=== PATIENT | male | born 1950 | race Caucasian/White ===

== ENCOUNTER 2016-06-23 16:41 | Emergency (ER) | payer OTHER ==
[~2016-06-23] VITALS: Ht 167.6 cm; Wt 95.0 kg
[2016-06-23 16:55] VITALS: Ht 167.6 cm; Wt 95.0 kg
[2016-06-23] MEDS ORDERED: SOD CHLORIDE 0.9% 1,000 ML IV STA (18:16)
[2016-06-23] MEDS ORDERED: HYDROCHLOROTHIAZIDE 50 MG TAB PO ONE (18:30)
[2016-06-23] MEDS ORDERED: HYDROCHLOROTHIAZIDE 25 MG TAB PO SCH (19:00)
[2016-06-23 19:10] LABS: BASOPHIL # 0.1 10^3/ul (0.0-0.1); BASOPHILS % 0.5 % (0.0-2.0); EOSINOPHILS # 0.2 10^3/ul (0.0-0.5); HEMATOCRIT 46.2 % (42.0-52.0); HEMOGLOBIN 15.8 g/dl (14.0-18.0); LYMPHOCYTES # 4.1 10^3/ul (0.8-2.9); LYMPHOCYTES % 39.4 % (15.0-51.0); MEAN CORPUSCULAR HEMOGLOBIN 32.3 pg (29.0-33.0); MEAN CORPUSCULAR HGB CONC 34.2 g/dl (32.0-37.0); MEAN CORPUSCULAR VOLUME 94.3 fl (82.0-101.0); MEAN PLATELET VOLUME 7.9 fl (7.4-10.4); MONOCYTES % 9.4 % (0.0-11.0); NEUTROPHIL # 5.1 10^3/ul (1.6-7.5); NEUTROPHILS % 48.7 % (39.0-77.0); PLATELET COUNT 204 10^3/UL (140-440); RED CELL DISTRIBUTION WIDTH 13.2 % (11.5-14.5); UNCORRECTED WBC 10.4 10^3/ul (4.8-10.8); WHITE BLOOD COUNT 10.4 10^3/ul (4.8-10.8)
[2016-06-23 19:14] LABS: CONDITION 1
--- NOTE | 2016-06-23 19:21 | RADRPT ---
PROCEDURE: XR Chest. CLINICAL INDICATION: Chest pain TECHNIQUE: Single frontal view of the chest. COMPARISON: No priorchest radiograph. FINDINGS: The lungs are clear. No pleural effusion or pneumothorax. The cardiomediastinal silhouette is unremarkable. No acute osseous abnormalities. Vascular calcifications of the aorta are present compatible with atherosclerosis. IMPRESSION: No acute air space infiltrates. RPTAT: AADD .Joce Klein MD, MD Date Time Electronically viewed and signed by .Joce Klein MD, MD on 06/23/2016 19:20 .B/
[2016-06-23 19:23] LABS: ALBUMIN 3.8 g/dl (3.3-4.9); CHLORIDE 105 mmol/L (97-110); POTASSIUM 4.2 mmol/L (3.5-5.1); SODIUM 141 mmol/L (135-144)
[2016-06-23 19:25] LABS: ANION GAP 15 (8-16); ASPARTATE AMINO TRANSFERASE 20 IU/L (15-46); BILIRUBIN,INDIRECT 0.5 mg/dl (0-1.1); BILIRUBIN,TOTAL 0.5 mg/dl (0.2-1.3); CARBON DIOXIDE 25 mmol/L (21-31); CREATININE 0.94 mg/dl (0.61-1.24)
[2016-06-23 19:26] LABS: ALANINE AMINOTRANSFERASE 26 IU/L (13-69); ALBUMIN/GLOBULIN RATIO 1.22; ALKALINE PHOSPHATASE 87 IU/L (42-121); BLOOD UREA NITROGEN 20 mg/dl (7-20); CALCIUM 9.1 mg/dl (8.4-10.2); GLUCOSE 106 mg/dl (70-220); TOTAL PROTEIN 6.9 g/dl (6.1-8.1)
[2016-06-23 19:39] LABS: TROPONIN-I < 0.012 ng/ml (0.00-0.12)
[2016-06-23 19:45] VITALS: BP 142/85; PULSE 76; RESP 18
[2016-06-23] MEDS ORDERED: TADA5TAB5 PO (19:55)
[2016-06-23] MEDS ORDERED: HYDR50TA3 PO (19:55)
--- NOTE | 2016-06-23 19:58 | ERD ---
ER Documentation Chief Complaint Date/Time DATE: 06/23/16 TIME: 19:58 Chief Complaint HTN WITH ADVERSE SIFE EFFECTS FROM CURRENT RX MEDICATION HPI 66-year-old man presents with discomfort to his head and neck and increased palpitations and generally feeling uneasy after beginning antihypertensive therapy with benazepril. His main purpose for his PMD visit recently was for a prescription of tadalafil, although his PMT did not want to prescribe it until his blood pressure was better controlled. Patient denies chest pain or pressure , no shortness of breath, no calf or leg swelling, no blurry vision, no vomiting or diarrhea. ROS All systems reviewed and are negative except as per history of present illness. Medications Home Meds Active Scripts Hydrochlorothiazide* (Hydrochlorothiazide*) 50 Mg Tab, 50 MG PO DAILY, #60 TAB Prov:JERAMY HENDERSON MD 06/23/16 Tadalafil (Cialis) 5 Mg Tablet, 5 MG PO DAILY, #14 TAB Prov:JERAMY HENDERSON MD 06/23/16 Allergies Allergies: Coded Allergies: No Known Allergy (Unverified , 06/23/16) PMhx/Soc Hypertension, obesity, tobacco smoke History of Surgery: No Anesthesia Reaction: No Hx Neurological Disorder: No Hx Respiratory Disorders: No Hx Cardiac Disorders: No Hx Psychiatric Problems: No Hx Miscellaneous Medical Probl: Yes (HTN) Hx Alcohol Use: No Hx Substance Use: No Smoking Status: Current every day smoker FmHx Family History: No diabetes Physical Exam Vitals Vital Signs Date Time Temp Pulse Resp B/P Pulse Ox O2 Delivery O2 Flow Rate FiO2 06/23/16 19:45 76 18 142/85 99 Room Air 06/23/16 16:55 96.3 101 20 141/90 97 Physical Exam GENERAL: Well-developed, well-nourished, well-hydrated, in no apparent distress , looks nontoxic in appearance HEENT: Moist mucous membranes, pink conjunctiva, no cervical spine tenderness or step-off deformities, no goiter, no jaundice or icterus, extraocular movements intact without pain. No submandibular induration, and no pharyngeal erythema NEURO: Alert and oriented 3, cranial nerves II through XII intact bilaterally, pupils equal round reactive to light, no focal deficits or facial asymmetry, sensation intact distally Strength 5/5 in upper and lower extremities bilaterally CARDIAC: Regular rate and rhythm, no murmurs rubs or gallops LUNGS: Clear bilaterally no wheezing crackles or stridor ABDOMEN: Soft nontender, no guarding, no rigidity, no rebound, no psoas sign no obturator sign. Normoactive bowel sounds SKIN: Warm and dry to touch, no abrasions, contusions, or hematomas, no lacerations, no ecchymosis, no target lesions, and without ulcers EXTREMITIES: No clubbing cyanosis or edema, calves are bilaterally symmetrical, no Homans sign, no popliteal cord sign. Distal pulses equal and bilateral PSYCH: Normal affect without agitation or irritability Result Diagram: 06/23/16184906/23/161849 Results 24 hrs Laboratory Tests Test 06/23/16 18:50 Alanine Aminotransferase (ALT/SGPT) 26IU/L Albumin 3.8g/dl Albumin/Globulin Ratio 1.22 Alkaline Phosphatase 87IU/L Anion Gap 15 Aspartate Amino Transf (AST/SGOT) 20IU/L Basophils # 0.110^3/ul Basophils % 0.5% Blood Urea Nitrogen 20mg/dl Calcium Level 9.1mg/dl Carbon Dioxide Level 25mmol/L Chloride Level 105mmol/L Creatinine 0.94mg/dl Direct Bilirubin 0.00mg/dl Eosinophils # 0.210^3/ul Eosinophils % 2.0% Globulin 3.10g/dl Glucose Level 106mg/dl Hematocrit 46.2% Hemoglobin 15.8g/dl Indirect Bilirubin 0.5mg/dl Lipase 59U/L Lymphocytes # 4.110^3/ul Lymphocytes % 39.4% Mean Corpuscular Hemoglobin 32.3pg Mean Corpuscular Hemoglobin Concent 34.2g/dl Mean Corpuscular Volume 94.3fl Mean Platelet Volume 7.9fl Monocytes # 1.010^3/ul Monocytes % 9.4% Neutrophils # 5.110^3/ul Neutrophils % 48.7% Nucleated Red Blood Cells # 0.010^3/ul Nucleated Red Blood Cells % 0.0/100WBC Platelet Count 16008^3/UL Potassium Level 4.2mmol/L Red Blood Count 4.9010^6/ul Red Cell Distribution Width 13.2% Sodium Level 141mmol/L Total Bilirubin 0.5mg/dl Total Protein 6.9g/dl Troponin I < 0.012ng/ml White Blood Count 10.410^3/ul Current Medications Medications (Trade) Dose Ordered Sig/Nimco Route PRN Reason Start Time Stop Time Status Last Admin Dose Admin Sodium Chloride (NS) 1,000 ml @ 1,000 mls/hr Q1H STAT IV 06/23/16 18:16 06/23/16 19:15 DC 06/23/16 19:02 Hydrochlorothiazide (Hydrochlorothiazide) 50 mg ONCE ONCE PO 06/23/16 18:30 06/23/16 18:31 Cancel Hydrochlorothiazide (Hydrochlorothiazide) 50 mg ONCE PO 06/23/16 19:00 06/23/16 20:14 DC 06/23/16 18:58 Procedures/MDM IV line was established patient was placed on teletypesetter monitor rhythm strip revealed a sinus rhythm at about 80 bpm with upright P and T waves. EKG performed, read by me: 83 bpm, normal sinus rhythm, normal axis, no acute ST segment changes, narrow QRS complex, with good R-wave progression in precordial leads. One AP view of the chest performed, read by me reveals no acute infiltrates, normal mediastinum, sharp costophrenic and cardiac borders, no air under the diaphragm. Otherwise unremarkable chest x-ray. I administered 1 L normal saline intravenously and hydrochlorothiazide 50 mg p.o. with good effect CBC and electrolytes were normal, liver function tests were normal, troponin was negative. Patient's systolic and diastolic pressures felt to within normal levels. He feels much better and looks well. I will prescribe him hydrochlorothiazide daily to use instead of benazepril which had unacceptable side effects. Also agreed to prescribe him a short course of tadalafil to use as needed. Side effects and contraindications of tadalafil use were discussed in detail. Differential diagnoses considered, included but not limited to acute coronary syndrome, pulmonary embolism, aortic dissection, abdominal aortic aneurysm, sepsis, stroke, meningitis, encephalitis, pneumonia, appendicitis, cholecystitis , bowel obstruction, pyelonephritis, nephrolithiasis, cystitis, as well as metabolic, hematologic, and electrolyte abnormalities. As well as abscess, cellulitis, fractures, and dislocations. Patient feels much better at this time, and vital signs are normal, symptoms have improved. I did give strict instructions to return to the ED if symptoms continue or worsen, patient will otherwise follow-up with primary care physician. Patient understood instructions and agreed to plan. Departure Diagnosis: Primary Impression: Hypertension Hypertension type: essential hypertension Qualified Code: I10 - Essential hypertension Additional Impression: Medication adverse effect Encounter type: initial encounter Qualified Code: T88.7XXA - Medication adverse effect, initial encounter Condition: Good Patient Instructions: High Blood Pressure (Hypertension) Referrals: VENICE PALAFOX DAVID MD Jun 23, 2016 19:58
== END 2016-06-23 20:06 | disposition home or self-care (01) ==
LOC: FTE 16:41
DX: I10 Essential (primary) hypertension (principal); F17.210 Nicotine dependence, cigarettes, uncomplicated; E66.9 Obesity, unspecified; T46.4X5A Adverse effect of angiotensin-converting-enzyme inhibitors, initial encounter; Z68.33 Body mass index [BMI] 33.0-33.9, adult
CPT/HCPCS: 36415; 71010; 80053; 83690; 84484; 85025; 93005; 96360; J7030; Z7502; Z7610

== ENCOUNTER 2016-12-05 15:04 | Emergency (ER) | payer OTHER ==
[~2016-12-05] VITALS: Ht 167.6 cm; Wt 93.0 kg
[~2016-12-05 15:04] MED LIST: HYDR50TA3 PO; TADA5TAB5 PO
[2016-12-05 15:13] VITALS: Ht 167.6 cm; Wt 93.0 kg
[2016-12-05] MEDS ORDERED: ASPIRIN 81 MG TAB PO STA (15:28)
[2016-12-05] MEDS ORDERED: NITROGLYCERIN 2% 1 GM OINT PKT TD STA (15:28)
[2016-12-05] MEDS ORDERED: NITROGLYCERIN (SL) 0.4 MG TAB SL PRN (15:30)
[2016-12-05 15:38] LABS: BASOPHILS % 0.3 % (0.0-2.0); EOSINOPHILS # 0.2 10^3/ul (0.0-0.5); EOSINOPHILS % 1.8 % (0.0-7.0); HEMATOCRIT 45.7 % (42.0-52.0); HEMOGLOBIN 16.4 g/dl (14.0-18.0); LYMPHOCYTES % 34.8 % (15.0-51.0); MEAN CORPUSCULAR HEMOGLOBIN 32.5 pg (29.0-33.0); MEAN CORPUSCULAR HGB CONC 35.9 g/dl (32.0-37.0); MEAN CORPUSCULAR VOLUME 90.7 fl (82.0-101.0); MEAN PLATELET VOLUME 9.5 fl (7.4-10.4); MONOCYTE # 0.8 10^3/ul (0.3-0.9); MONOCYTES % 9.7 % (0.0-11.0); NEUTROPHIL # 4.6 10^3/ul (1.6-7.5); NEUTROPHILS % 53.2 % (39.0-77.0); PLATELET COUNT 209 10^3/UL (140-415); RED BLOOD COUNT 5.04 10^6/ul (4.70-6.10); RED CELL DISTRIBUTION WIDTH 12.3 % (11.5-14.5); WHITE BLOOD COUNT 8.7 10^3/ul (4.8-10.8)
[2016-12-05 15:54] LABS: INR 0.9; PROTIME 12.1 Sec (12.2-14.2); PT RATIO 0.9
[2016-12-05 15:57] LABS: ANION GAP 17 (8-16); BLOOD UREA NITROGEN 21 mg/dl (7-20); CARBON DIOXIDE 23 mmol/L (21-31); CHLORIDE 103 mmol/L (97-110); CREATININE 1.03 mg/dl (0.61-1.24); GLUCOSE 134 mg/dl (70-220); POTASSIUM 4.3 mmol/L (3.5-5.1); SODIUM 139 mmol/L (135-144)
[2016-12-05 16:10] LABS: TROPONIN-I < 0.012 ng/ml (0.00-0.12)
[2016-12-05 16:16] VITALS: BP 109/79; PULSE 62; RESP 17; TEMP 98.1
--- NOTE | 2016-12-05 16:16 | ERD ---
ER Documentation Chief Complaint Date/Time DATE: 12/05/16 TIME: 16:15 Chief Complaint mid chest pain HPI Patient is a 66-year-old male with hypertension and smoking who presents with chest pain. The patient has midsternal chest pain which started last night. He was worse about his heart. He said "I thought I smoke too many cigarettes". He said that he smoked 28 cigarettes yesterday. The chest pain was constant and midsternal. He had a similar episode that happened him in 2001. He does not currently have a primary doctor. Upon review of old medical records the patient one previous visit to the ER in June 2016. ROS All systems reviewed and are negative except as per history of present illness. Medications Home Meds Active Scripts Hydrochlorothiazide* (Hydrochlorothiazide*) 50 Mg Tab, 50 MG PO DAILY, #60 TAB Prov:JERAMY HENDERSON MD 06/23/16 Tadalafil (Cialis) 5 Mg Tablet, 5 MG PO DAILY, #14 TAB Prov:JERAMY HENDERSON MD 06/23/16 Allergies Allergies: Coded Allergies: No Known Allergy (Unverified , 06/23/16) PMhx/Soc History of Surgery: No Anesthesia Reaction: No Hx Neurological Disorder: No Hx Respiratory Disorders: No Hx Cardiac Disorders: No Hx Psychiatric Problems: No Hx Miscellaneous Medical Probl: Yes (HTN) Hx Alcohol Use: No Hx Substance Use: No Hx Tobacco Use: Yes Smoking Status: Current every day smoker FmHx Family History: diabetes, No coronary disease Physical Exam Vitals Vital Signs Date Time Temp Pulse Resp B/P Pulse Ox O2 Delivery O2 Flow Rate FiO2 12/05/16 16:16 98.1 62 17 109/79 99 Room Air 12/05/16 15:31 Nasal Cannula 12/05/16 15:13 98.4 74 19 115/76 97 Physical Exam Const: No acute distress Head: Atraumatic Eyes: Normal Conjunctiva ENT: Normal External Ears, Nose and Mouth. Neck: Full range of motion..~ No meningismus. Resp: Clear to auscultation bilaterally Cardio: Regular rate and rhythm, no murmurs Abd: Soft, non tender, non distended. Normal bowel sounds Skin: No petechiae or rashes Back: No midline or flank tenderness Ext: No cyanosis, or edema Neur: Awake and alert Psych: Normal Mood and Affect Result Diagram: 12/05/16 1530 12/05/16 1530 Results 24 hrs Laboratory Tests Test 12/05/16 15:30 White Blood Count 8.710^3/ul Red Blood Count 5.0410^6/ul Hemoglobin 16.4g/dl Hematocrit 45.7% Mean Corpuscular Volume 90.7fl Mean Corpuscular Hemoglobin 32.5pg Mean Corpuscular Hemoglobin Concent 35.9g/dl Red Cell Distribution Width 12.3% Platelet Count 41684^3/UL Mean Platelet Volume 9.5fl Neutrophils % 53.2% Lymphocytes % 34.8% Monocytes % 9.7% Eosinophils % 1.8% Basophils % 0.3% Nucleated Red Blood Cells % 0.0/100WBC Neutrophils # 4.610^3/ul Lymphocytes # 3.010^3/ul Monocytes # 0.810^3/ul Eosinophils # 0.210^3/ul Basophils # 0.010^3/ul Nucleated Red Blood Cells # 0.010^3/ul Prothrombin Time 12.1Sec Prothrombin Time Ratio 0.9 INR International Normalized Ratio 0.90 Activated Partial Thromboplast Time 25.0Sec Sodium Level 139mmol/L Potassium Level 4.3mmol/L Chloride Level 103mmol/L Carbon Dioxide Level 23mmol/L Anion Gap 17 Blood Urea Nitrogen 21mg/dl Creatinine 1.03mg/dl Glucose Level 134mg/dl Calcium Level 9.0mg/dl Troponin I < 0.012ng/ml Current Medications Medications (Trade) Dose Ordered Sig/Nimco Route PRN Reason Start Time Stop Time Status Last Admin Dose Admin Aspirin (Aspirin) 162 mg ONCE STAT PO 12/05/16 15:28 12/05/16 15:29 DC 12/05/16 15:38 Nitroglycerin (Nitroglycerin 2% Oint) 1 inch ONCE STAT TD 12/05/16 15:28 12/05/16 15:29 DC 12/05/16 15:41 Nitroglycerin (Nitroglycerin (Sl Tab) 0.4 Mg) 1 tab Q5M UP TO 3 DOSES PRN SL CHEST PAIN 12/05/16 15:30 12/05/16 16:25 DC Procedures/MDM EKG #1 read by me: Rate/Rhythm: Regular rate and rhythm at a rate of 64 Intervals: Normal Impression: No evidence of ischemia or arrhythmia EKG #2 read by me: Rate/Rhythm: Regular rate and rhythm at a rate of 62 Intervals: Normal Impression: No evidence of ischemia or arrhythmia Chest X-ray 1V Interpreted by me: Soft Tissue: No acute abnormalities Bones: No acute abnormalities Mediastinum/Cardiac Silhouette/Lungs: No acute abnormalities Smoking Cessation Therapy: Pt. was lectured for greater than 3 minutes on the health risks of continued smoking and the benefits of cessation. Patient is a 66-year-old male with hypertension and smoking who presents with chest pain. I was concerned for possible acute coronary syndrome. Laboratory studies showed a normal troponin and 2 EKGs did not show any signs of ischemia. Chest x-ray shows no pneumonia or pneumothorax. However I still wanted to admit the patient for further workup for the cause of his chest pain and possible acute coronary syndrome. The patient was given aspirin nitroglycerin. However the patient is adamant that he does not want to be admitted to the hospital. At this point I doubt pneumonia, pneumothorax, pulmonary embolism, or aortic dissection. The patient will be leaving AGAINST MEDICAL ADVICE as I did offer and recommend admission on 3 separate occasions. However the patient would like to go home and follow-up with the local clinics instead. I told him that he could return for any worsening symptoms or if he would like to be admitted. Departure Diagnosis: Primary Impression: Chest pain Chest pain type: unspecified Qualified Code: R07.9 - Chest pain, unspecified type Condition: Fair Patient Instructions: Chest Pain, Uncertain Cause Referrals: [facility] YOU HAVE RECEIVED A MEDICAL SCREENING EXAM AND THE RESULTS INDICATE THAT YOU DO NOT HAVE A CONDITION THAT REQUIRES URGENT TREATMENT IN THE EMERGENCY DEPARTMENT. FURTHER EVALUATION AND TREATMENT OF YOUR CONDITION CAN WAIT UNTIL YOU ARE SEEN IN YOUR DOCTORS OFFICE WITHIN THE NEXT 1-2 DAYS. IT IS YOUR RESPONSIBILITY TO MAKE AN APPOINTMENT FOR FOLOW-UP CARE. IF YOU HAVE A PRIMARY DOCTOR --you should call your primary doctor and schedule an appointment IF YOU DO NOT HAVE A PRIMARY DOCTOR YOU CAN CALL OUR PHYSICIAN REFERRAL HOTLINE AT IF YOU CAN NOT AFFORD TO SEE A PHYSICIAN YOU CAN CHOSE FROM THE FOLLOWING [facility] [address] [facility] [address] [facility]. [email or web address] [address] [facility] [address] [facility] [address] [facility]. [facility] [address] Additional Instructions: FOLLOW UP WITH YOUR PRIMARY CARE PHYSICIAN TOMORROW.Return to this facility if you are not improving as expected. MINDI SALAZAR MD Dec 05, 2016 16:16
--- NOTE | 2016-12-05 18:08 | RADRPT ---
PROCEDURE: XR Chest. CLINICAL INDICATION: Chest pain. TECHNIQUE: Anterior chest x-ray. COMPARISON: 06/23/2016 FINDINGS: 1 x 2 cm ovoid density projects over left lower lung along the left heart border which could be pulm onary nodule, atelectasis or artifact from skin fold. There is a skin fold artifact which traverses the lateral third of the left chest. Follow-up PA and lateral chest radiograph is suggested for further evaluation. The lungs are otherwise clear. No pleural effusion identified. There is no evidence of pneumothorax. The cardiomediastinal silhouette is unremarkable. The soft tissues are normal. Osseous structures are unremarkable. IMPRESSION: 1. 1 x 2 cm low density in left lung base may be artifactual along skin fold or to pulmonary nodule . Follow-up PA and lateral chest radiograph is suggested for clarification. 2. Otherwise unremarkable chest radiograph. RPTAT: QQ .Zen Cruz MD, MD Date Time Electronically viewed and signed by .Zen Cruz MD, MD on 12/05/2016 18:07 .M/
== END 2016-12-05 16:24 | disposition left against medical advice (07) ==
LOC: E/R 15:04
DX: R07.2 Precordial pain (principal); I10 Essential (primary) hypertension; F17.210 Nicotine dependence, cigarettes, uncomplicated; R07.9 Chest pain, unspecified
CPT/HCPCS: 71010; 80048; 84484; 85025; 85610; 85730; Z7610; 36415; 93005

== ENCOUNTER 2018-08-15 15:35 | Emergency (ER) | payer MEDICARE, OTHER ==
[~2018-08-15] VITALS: Ht 162.6 cm; Wt 92.7 kg
[~2018-08-15 15:35] MED LIST changes: +TADA5TAB2 PO; -TADA5TAB5 PO
[2018-08-15 15:48] VITALS: Ht 162.6 cm; Wt 92.7 kg
[2018-08-15] MEDS ORDERED: ACET500C5 PO (18:42)
[2018-08-15] MEDS ORDERED: METH750T93 PO (18:43)
[2018-08-15 18:56] VITALS: BP 118/70; PULSE 71; RESP 18
--- NOTE | 2018-08-15 18:56 | ERD ---
ER Documentation Chief Complaint Chief Complaint right jaw pain with eating, had inplants months ago. HPI 68-year-old male presents for right jaw pain times 1 week. He states that he had dental implants done about a month ago and has been having chronic pain issues. He went to the dentist and was given some ibuprofen with some relief however he states that the pain continues. The pain is mostly with eating. Denies any pain without jaw movement. He states that the pain is 4 out of 10, described as sharp, intermittent while eating. Denies any fevers or chills. D enies shortness of breath or chest pain. ROS All systems reviewed and are negative except as per history of present illness. Medications Home Meds Active Scripts Methocarbamol* (Robaxin*) 750 Mg Tablet, 750 MG PO TID PRN for MUSCLE SPASMS, #30 TAB Prov:AAYUSH WILKINS DO 08/15/18 Acetaminophen* (Tylophen*) 500 Mg Capsule, 1 CAP PO Q6H PRN for PAIN AND OR ELEVATED TEMP, #30 CAP Prov:AAYUSH WILKINS DO 08/15/18 Hydrochlorothiazide* (Hydrochlorothiazide*) 50 Mg Tab, 50 MG PO DAILY, #60 TAB Prov:JERAMY HENDERSON MD 06/23/16 Tadalafil (Cialis) 5 Mg Tablet, 5 MG PO DAILY, #14 TAB Prov:JERAMY HENDERSON MD 06/23/16 Allergies Allergies: Coded Allergies: No Known Allergy (Unverified , 06/23/16) PMhx/Soc History of Surgery: No Anesthesia Reaction: No Hx Neurological Disorder: No Hx Respiratory Disorders: No Hx Cardiac Disorders: No Hx Psychiatric Problems: No Hx Miscellaneous Medical Probl: Yes (HTN) Hx Alcohol Use: No Hx Substance Use: No Hx Tobacco Use: Yes Smoking Status: Current some day smoker Physical Exam Vitals Vital Signs Date Temp Pulse Resp B/P (MAP) Pulse Ox O2 O2 Flow FiO2 Time Delivery Rate 08/15/18 97.8 91 18 140/72 98 15:48 (94) Physical Exam Const: No acute distress Head: Atraumatic, right TMJ mild pain to palpation Eyes: Normal Conjunctiva ENT: Normal External Ears, Nose and Mouth. Neck: Full range of motion. No meningismus. No tenderness palpation Resp: Clear to auscultation bilaterally Cardio: Regular rate and rhythm, no murmurs Skin: No petechiae or rashes Ext: No cyanosis, or edema Neur: Awake and alert Psych: Normal Mood and Affect Procedures/MDM Medical Decision Making: Differential diagnosis includes but not limited to fracture, dislocation, TMJ dysfunction Patient appeared well on physical exam. There was tenderness over the right TMJ area Patient was neurovascularly intact Possible TMJ dysfunction. Patient given prescription for supportive medications. Advised to continue to follow-up with his dentist. Patient advised to follow up with PCP in 1-2 days. Patient advised to return to ED for new or worsening symptoms. Patient stable on discharge from the ED. Disclaimer: Inadvertent spelling and grammatical errors are likely due to EHR/dictation software use and do not reflect on the overall quality of patient care. Also, please note that the electronic time recorded on this note does not necessarily reflect the actual time of the patient encounter. Departure Diagnosis: Primary Impression: TMJ (temporomandibular joint disorder) Condition: Fair Patient Instructions: Helping Your Temporomandibular Joint (TMJ) Heal, Tmj Syndrome Referrals: [facility] YOU HAVE RECEIVED A MEDICAL SCREENING EXAM AND THE RESULTS INDICATE THAT YOU DO NOT HAVE A CONDITION THAT REQUIRES URGENT TREATMENT IN THE EMERGENCY DEPARTMENT. FURTHER EVALUATION AND TREATMENT OF YOUR CONDITION CAN WAIT UNTIL YOU ARE SEEN IN YOUR DOCTORS OFFICE WITHIN THE NEXT 1-2 DAYS. IT IS YOUR RESPONSIBILITY TO MAKE AN APPOINTMENT FOR FOLOW-UP CARE. IF YOU HAVE A PRIMARY DOCTOR --you should call your primary doctor and schedule an appointment IF YOU DO NOT HAVE A PRIMARY DOCTOR YOU CAN CALL OUR PHYSICIAN REFERRAL HOTLINE AT IF YOU CAN NOT AFFORD TO SEE A PHYSICIAN YOU CAN CHOSE FROM THE FOLLOWING [facility] [address] [facility]. [facility] [address] [facility] [address] [facility] [facility] [address] [facility] [address] [facility]. [facility]. [address] Additional Instructions: Call your primary care doctor TOMORROW for an appointment during the next 1-2 days.See the doctor sooner or return here if your condition worsens before your appointment time. AAYUSH WILKINS DO Aug 15, 2018 18:56
== END 2018-08-15 18:58 | disposition home or self-care (01) ==
LOC: FTE 15:35
DX: M26.601 Right temporomandibular joint disorder, unspecified (principal); I10 Essential (primary) hypertension; F17.210 Nicotine dependence, cigarettes, uncomplicated
CPT/HCPCS: 99283